=== PATIENT | male | born 1940 | race Caucasian/White ===

== ENCOUNTER 2018-01-09 04:57 | Day surgery (SDC) | payer MEDICARE ==
[2018-01-08 12:21] LABS: BASOPHILS % (AUTO) 0.7 % (0-1); EOSINOPHILS # (AUTO) 0.1 X10'3 (0-0.9); EOSINOPHILS % (AUTO) 1.2 % (0-6); HEMATOCRIT 46.2 % (42.0-52.0); HEMOGLOBIN 15.9 g/dl (14.0-17.9); LYMPHOCYTES % (AUTO) 33.5 % (21-51); MEAN CORPUSCULAR HEMOGLOBIN 30.6 PG (27.0-31.0); MEAN CORPUSCULAR HGB CONC 34.3 % (33.0-36.5); MEAN CORPUSCULAR VOLUME 89.3 FL (78-98); MEAN PLATELET VOLUME 8.1 FL (7.4-10.4); MONOCYTES # (AUTO) 0.6 X10'3 (0-0.9); MONOCYTES % (AUTO) 10.9 % (2-12); NEUTROPHILS # (AUTO) 3.2 X10'3 (1.8-7.7); NEUTROPHILS % (AUTO) 53.7 % (42-75); PLATELET COUNT 238 X10'3 (140-440); RED BLOOD COUNT 5.18 X10'6 (4.70-6.10); RED CELL DISTRIBUTION WIDTH 13.6 % (11.5-14.5); WHITE BLOOD COUNT 5.9 X10'3 (4.5-11.0)
[2018-01-08 12:30] LABS: ANION GAP 8 (8-16); BLOOD UREA NITROGEN 15 MG/DL (7-18); BUN/CREATININE RATIO 12.1 (5.4-32.0); CHLORIDE 102 MMOL/L (99-107); CREATININE 1.24 MG/DL (0.60-1.10); GLUCOSE 152 MG/DL (70-104); POTASSIUM 3.7 MMOL/L (3.5-5.1); SODIUM 136 MMOL/L (135-145); TOTAL CARBON DIOXIDE 25.6 MMOL/L (24-32); eGFR 57 ML/MIN
[2018-01-08 12:31] LABS: INR 0.9 INR; PARTIAL THROMBOPLASTIN TIME 25 SECONDS (22-32); PROTHROMBIN TIME 9.8 SECONDS (9.0-12.0)
[2018-01-08 12:34] LABS: CALCIUM 9.6 MG/DL (8.5-10.1)
[~2018-01-09] VITALS: Ht 180.3 cm; Wt 88.5 kg
[2018-01-09] VITALS (10 sets, daily range): BP systolic 91–152; BP diastolic 52–79
[~2018-01-09 04:57] MED LIST: ASPI-1009 PO; ATOR40TA71 PO; CHOL100024 PO; CYAN50003 PO; FENO160T PO; FISH OIL OMEGA1 EAC1 PO; GLIM4TAB79 PO; LOSA25TA96 PO; MAGN250T11 PO; METF500T PO; METHYLFOLATE PO; METO25TA6 PO; NITR0.4T48 SL; SITA50TA PO; TEST200V10 IM; UBID100C45 PO
[2018-01-09] MEDS ORDERED: FLUC100T8 PO (05:34)
[2018-01-09] MEDS ORDERED: EMPA1TAB3 (05:34)
[2018-01-09] MEDS ORDERED: LOSA1TAB39 PO (05:34)
[2018-01-09] MEDS ORDERED: potassium PO (05:34)
[2018-01-09] MEDS ORDERED: diphenhydrAMINE 25mg capsule PO PRN (05:35)
[2018-01-09] MEDS ORDERED: normal saline 1000ml 1,000 ML IV SCH (05:35)
[2018-01-09] MEDS ORDERED: LIDOcaine/PRILOcaine 5gm cream TP ONE (05:35)
[2018-01-09] MEDS ORDERED: LORazepam 0.5 MG tablet PO PRN (05:35)
[2018-01-09] MEDS ORDERED: lidocaine 1%/epinephrine 1:100,000 injection 50ml vial ONE (06:06)
[2018-01-09] MEDS ORDERED: fentaNYL/PF 50MCG/1 ML 2ML syringe ONE (06:06)
[2018-01-09] MEDS ORDERED: midazolam 2 mg/2 ml injection ONE (06:06)
[2018-01-09] MEDS ORDERED: iohexol 350MG/ML 100ml bottle IV ONE ×2 (06:06→06:52)
[2018-01-09] MEDS ORDERED: heparin 1,000unit/ml 10ml vial 10 ML ONE (06:29)
[2018-01-09] MEDS ORDERED: verapamil 2.5 mg/ml inj IV ONE (06:29)
[2018-01-09] MEDS ORDERED: nitroGLYCERIN-Tridil 50MG/D5W 250 ML IV ONE (06:29)
[2018-01-09] MEDS ORDERED: LIDOcaine 1% 30ml preserv. free vial ONE (06:31)
[2018-01-09] MEDS ORDERED: iohexol 350 MG/ML 50ML vial IV ONE (06:52)
[2018-01-09] MEDS ORDERED: ticagrelor 90mg tablet ONE (07:20)
[2018-01-09] MEDS ORDERED: ondansetron/PF 4mg/2ml inj IV PRN (07:40)
[2018-01-09] MEDS ORDERED: proCHLORperazine 10 MG/2 ml inj IV PRN (07:40)
[2018-01-09] MEDS ORDERED: nitroGLYCERIN 0.4mg SUBLingual tab SL PRN (07:40)
[2018-01-09] MEDS ORDERED: OXAZEpam 15mg capsule PO PRN (07:40)
== END 2018-01-09 11:05 | disposition home or self-care (01) ==
LOC: SSTAY O 04:57
PROVIDERS: ATTEND Internal Medicine Interventional Cardiology
DX: I25.110 Atherosclerotic heart disease of native coronary artery with unstable angina pectoris (principal); I10 Essential (primary) hypertension; E78.5 Hyperlipidemia, unspecified; I65.23 Occlusion and stenosis of bilateral carotid arteries; E11.65 Type 2 diabetes mellitus with hyperglycemia; N40.0 Benign prostatic hyperplasia without lower urinary tract symptoms; M06.9 Rheumatoid arthritis, unspecified; Z90.49 Acquired absence of other specified parts of digestive tract; Z88.1 Allergy status to other antibiotic agents; Z79.84 Long term (current) use of oral hypoglycemic drugs; Z95.5 Presence of coronary angioplasty implant and graft; Z79.82 Long term (current) use of aspirin; Z72.89 Other problems related to lifestyle; Z79.899 Other long term (current) drug therapy; Z98.890 Other specified postprocedural states; Z83.6 Family history of other diseases of the respiratory system; Z82.49 Family history of ischemic heart disease and other diseases of the circulatory system; Z83.49 Family history of other endocrine, nutritional and metabolic diseases
CPT/HCPCS: 36415; 80048; 82948; 85025; 85610; 85730; 93458; 99152; 99153; A6257; A6402; A6449; C1725; C1769; C1874; C9600; J1644; J2250; J3010; J3490; J7030; Q0163; Q9967; A4620

== ENCOUNTER 2018-03-28 11:22 | Outpatient (CLI) | payer MEDICARE ==
[~2018-03-28 11:22] MED LIST changes: -CHOL100024 PO; -CYAN50003 PO; +EMPA1TAB3; -FENO160T PO; +FLUC100T8 PO; +LOSA1TAB39 PO; -LOSA25TA96 PO; -MAGN250T11 PO; -METF500T PO; -METHYLFOLATE PO; -SITA50TA PO; +potassium PO
[2018-03-28 12:05] LABS: BASOPHILS % (AUTO) 0.5 % (0-1); EOSINOPHILS # (AUTO) 0.1 X10'3 (0-0.9); EOSINOPHILS % (AUTO) 1.2 % (0-6); HEMATOCRIT 44.7 % (42.0-52.0); HEMOGLOBIN 15.2 g/dl (14.0-17.9); LYMPHOCYTES # (AUTO) 1.8 X10'3 (1.1-4.8); LYMPHOCYTES % (AUTO) 24.9 % (21-51); MEAN CORPUSCULAR HEMOGLOBIN 30.1 PG (27.0-31.0); MEAN CORPUSCULAR HGB CONC 33.9 % (33.0-36.5); MEAN CORPUSCULAR VOLUME 88.8 FL (78-98); MONOCYTES # (AUTO) 0.4 X10'3 (0-0.9); MONOCYTES % (AUTO) 6.3 % (2-12); NEUTROPHILS # (AUTO) 4.8 X10'3 (1.8-7.7); NEUTROPHILS % (AUTO) 67.1 % (42-75); PLATELET COUNT 229 X10'3 (140-440); RED BLOOD COUNT 5.03 X10'6 (4.70-6.10); RED CELL DISTRIBUTION WIDTH 13.2 % (11.5-14.5); WHITE BLOOD COUNT 7.1 X10'3 (4.5-11.0)
[2018-03-28 12:27] LABS: ALANINE AMINOTRANSFERASE 59 U/L (12-78); ALBUMIN/GLOBULIN RATIO 1.2 (1.1-1.5); ALKALINE PHOSPHATASE 77 IU/L (46-116); ANION GAP 10 (8-16); ASPARTATE AMINO TRANSFERASE 27 U/L (10-37); BILIRUBIN,TOTAL 0.7 MG/DL (0.1-1.0); BLOOD UREA NITROGEN 12 MG/DL (7-18); BUN/CREATININE RATIO 9.4 (5.4-32.0); CHLORIDE 101 MMOL/L (99-107); CREATININE 1.28 MG/DL (0.60-1.10); GLUCOSE 291 MG/DL (70-104); POTASSIUM 3.4 MMOL/L (3.5-5.1); SODIUM 138 MMOL/L (135-145); TOTAL CARBON DIOXIDE 27.5 MMOL/L (24-32); TOTAL PROTEIN 7.3 G/DL (6.4-8.2); eGFR 55 ML/MIN
== END 2018-03-28 23:59 | disposition home or self-care (01) ==
LOC: LAB 11:22
PROVIDERS: ATTEND Internal Medicine Interventional Cardiology
DX: R06.02 Shortness of breath (principal); R60.9 Edema, unspecified; E78.49 Other hyperlipidemia; I10 Essential (primary) hypertension; E11.9 Type 2 diabetes mellitus without complications; Z88.1 Allergy status to other antibiotic agents
CPT/HCPCS: 36415; 80053; 83880; 85025

== ENCOUNTER 2021-07-18 14:16 | Day surgery (SDC) | payer MEDICARE ==
[2021-07-13 12:26] LABS: BASOPHILS % (AUTO) 0.6 % (0-1); EOSINOPHILS # (AUTO) 0.1 X10'3 (0-0.9); EOSINOPHILS % (AUTO) 1.2 % (0-6); HEMATOCRIT 39.3 % (42.0-52.0); HEMOGLOBIN 13.4 g/dl (14.0-17.9); LYMPHOCYTES # (AUTO) 2.8 X10'3 (1.1-4.8); LYMPHOCYTES % (AUTO) 39.3 % (21-51); MEAN CORPUSCULAR HEMOGLOBIN 29.5 PG (27.0-31.0); MEAN CORPUSCULAR HGB CONC 34.1 g/dL (33.0-36.5); MEAN CORPUSCULAR VOLUME 86.5 FL (78-98); MEAN PLATELET VOLUME 7.3 FL (7.4-10.4); MONOCYTES # (AUTO) 0.6 X10'3 (0-0.9); MONOCYTES % (AUTO) 9.2 % (2-12); NEUTROPHILS # (AUTO) 3.5 X10'3 (1.8-7.7); NEUTROPHILS % (AUTO) 49.7 % (42-75); PLATELET COUNT 266 X10'3 (140-440); RED BLOOD COUNT 4.54 X10'6 (4.70-6.10)
[2021-07-13 12:34] LABS: APTT 27 SECONDS (22-32)
[2021-07-13 12:41] LABS: ALBUMIN 4.2 G/DL (3.4-5.0); ANION GAP 13 (8-16); BLOOD UREA NITROGEN 9 MG/DL (7-18); BUN/CREATININE RATIO 8.9 (5.4-32.0); CALCIUM 8.6 MG/DL (8.5-10.1); CHLORIDE 99 MMOL/L (99-107); CREATININE 1.01 MG/DL (0.60-1.10); GLUCOSE 184 MG/DL (70-104); POTASSIUM 4.4 MMOL/L (3.5-5.1); SODIUM 136 MMOL/L (135-145); TOTAL CARBON DIOXIDE 24.5 MMOL/L (24-32); eGFR 71 ML/MIN
[2021-07-18] VITALS (10 sets, daily range): BP systolic 144–185; BP diastolic 59–105
[~2021-07-18] VITALS: Ht 180.3 cm; Wt 86.5 kg
[~2021-07-18 14:16] MED LIST changes: -ASPI-1009 PO; +CLOP75TA15 PO; +DAPA5TAB PO; +DULA0.75; -EMPA1TAB3; +FLO0.4C PO; -FLUC100T8 PO; +GLIM4TAB7 PO; -GLIM4TAB79 PO; +ISOS30TA84 PO; +LOP25T PO; -LOSA1TAB39 PO; +LOSA50TA3 PO; -METO25TA6 PO; +METO5TAB98 PO; +OMEP40CA21 PO; +POTA-197 PO; +RIVA1TAB PO; +RIVA20TA PO; -TEST200V10 IM; +TEST200V33 IM; +[UNRECOGNIZED DRUG - CODE] PO; -potassium PO
[2021-07-18] MEDS ORDERED: LIDOcaine/PRILOcaine 5gm cream TP ONE ×2 (14:25→14:35)
[2021-07-18] MEDS ORDERED: diphenhydrAMINE 25mg capsule PO PRN (14:35)
[2021-07-18] MEDS ORDERED: normal saline 1,000 ML IV SCH (14:35)
[2021-07-18] MEDS ORDERED: LORazepam 0.5 MG tablet PO PRN (14:35)
[2021-07-18] MEDS ORDERED: METF-436 PO (14:55)
[2021-07-18] MEDS ORDERED: RANO500T6 PO (14:55)
[2021-07-18] MEDS ORDERED: ASPI-1144 PO (14:55)
[2021-07-18] MEDS ORDERED: LISI5TAB22 PO (14:55)
[2021-07-18] MEDS ORDERED: RIVA20TA PO (14:55)
[2021-07-18] MEDS ORDERED: CHOL-4 PO (14:55)
[2021-07-18] MEDS ORDERED: LANTUS SQ (14:58)
[2021-07-18] MEDS ORDERED: OMEP20TA23 PO (14:59)
[2021-07-18] MEDS ORDERED: MULT-1085 PO (15:08)
[2021-07-18] MEDS ORDERED: CYAN-34 PO (15:08)
[2021-07-18] MEDS ORDERED: FINA5TAB11 PO (15:08)
[2021-07-18] MEDS ORDERED: midazolam 1 mg/ML 2ml injection ONE (17:09)
[2021-07-18] MEDS ORDERED: verapamil 2.5 mg/ml inj IV ONE (17:09)
[2021-07-18] MEDS ORDERED: fentaNYL/PF 50MCG/1 ML 2ML syringe ONE (17:09)
[2021-07-18] MEDS ORDERED: iohexol 350MG/ML 100ml bottle IV ONE (17:10)
[2021-07-18] MEDS ORDERED: heparin 1,000unit/ml 10ml vial 10 ML ONE (17:10)
[2021-07-18] MEDS ORDERED: nitroGLYCERIN-Tridil 50MG/D5W 250 ML IV ONE (17:10)
[2021-07-18] MEDS ORDERED: LIDOcaine 1% (10mg/ml)w/preservative injection 20ml MDV ONE (17:10)
[2021-07-18] MEDS ORDERED: hydrALAZINE 20mg/ml inj. IV ONE (18:14)
[2021-07-18] MEDS ORDERED: nitroGLYCERIN 0.4mg SUBLingual tab SL ONE (20:03)
== END 2021-07-18 21:00 | disposition home or self-care (01) ==
LOC: SSTAY O 14:16
PROVIDERS: ATTEND Internal Medicine Interventional Cardiology
DX: R07.89 Other chest pain (principal); I25.118 Atherosclerotic heart disease of native coronary artery with other forms of angina pectoris; E11.9 Type 2 diabetes mellitus without complications; G47.33 Obstructive sleep apnea (adult) (pediatric); E78.5 Hyperlipidemia, unspecified; I10 Essential (primary) hypertension; I65.29 Occlusion and stenosis of unspecified carotid artery; Z79.899 Other long term (current) drug therapy; Z95.5 Presence of coronary angioplasty implant and graft; Z86.711 Personal history of pulmonary embolism; Z88.1 Allergy status to other antibiotic agents
CPT/HCPCS: 36415; 80048; 82948; 85025; 85610; 85730; 93005; 93458; 99152; 99153; C1769; C1894; J0360; J1644; J2250; J3010; J3490; J7030; Q0163; Q9967; A4620; A5120

== ENCOUNTER 2022-09-25 11:03 | Day surgery (SDC) | payer MEDICARE ==
[2022-09-25] VITALS (9 sets, daily range): BP systolic 144–187; BP diastolic 61–91
[~2022-09-25] VITALS: Ht 180.3 cm; Wt 85.7 kg
[~2022-09-25 11:03] MED LIST changes: +ASPI-1144 PO; +CHOL-4 PO; -CLOP75TA15 PO; +CYAN-34 PO; -DAPA5TAB PO; -DULA0.75; +FINA5TAB11 PO; -FLO0.4C PO; -GLIM4TAB7 PO; +LANTUS SQ; +LISI5TAB22 PO; -LOP25T PO; -LOSA50TA3 PO; +METF-436 PO; -METO5TAB98 PO; +MULT-1085 PO; +OMEP20TA23 PO; -OMEP40CA21 PO; -POTA-197 PO; +RANO500T6 PO; -RIVA1TAB PO; -RIVA20TA PO; -TEST200V33 IM; -UBID100C45 PO; +[UNRECOGNIZED DRUG - CODE] IV; -[UNRECOGNIZED DRUG - CODE] PO
[2022-09-25] MEDS ORDERED: LORazepam 0.5 MG tablet PO PRN (11:40)
[2022-09-25] MEDS ORDERED: normal saline 1,000 ML IV SCH (11:40)
[2022-09-25] MEDS ORDERED: diphenhydrAMINE 25mg capsule PO PRN (11:40)
[2022-09-25] MEDS ORDERED: DOXY100T2 PO (11:43)
[2022-09-25] MEDS ORDERED: FENO145T25 PO (11:43)
[2022-09-25] MEDS ORDERED: METO-411 PO (11:43)
[2022-09-25] MEDS ORDERED: FLO0.4C PO (11:43)
[2022-09-25] MEDS ORDERED: METF-437 PO (11:43)
[2022-09-25] MEDS ORDERED: UBID50TA3 PO (11:43)
[2022-09-25] MEDS ORDERED: ATOR-2 PO (11:43)
[2022-09-25] MEDS ORDERED: EZET10TA48 PO (11:43)
[2022-09-25] MEDS ORDERED: POTA-366 PO (11:43)
[2022-09-25] MEDS ORDERED: midazolam 1 mg/ML 2ml injection ONE (11:53)
[2022-09-25] MEDS ORDERED: verapamil 2.5 mg/ml inj IV ONE (11:53)
[2022-09-25] MEDS ORDERED: LIDOcaine 1% (10mg/ml) 2ml vial ONE (11:53)
[2022-09-25] MEDS ORDERED: fentaNYL/PF 50MCG/1 ML 2ML syringe ONE (11:54)
[2022-09-25] MEDS ORDERED: heparin 1,000unit/ml 10ml vial 10 ML ONE ×2 (11:54→13:13)
[2022-09-25] MEDS ORDERED: nitroGLYCERIN-Tridil 50MG/D5W 250 ML IV ONE (11:54)
[2022-09-25] MEDS ORDERED: iohexol 350MG/ML 100ml bottle IV ONE ×2 (11:54→13:14)
[2022-09-25] MEDS ORDERED: LIDOcaine 1% 30ml preserv. free vial ONE (12:48)
[2022-09-25] MEDS ORDERED: iohexol 350 MG/ML 50ML vial IV ONE ×2 (12:57→13:10)
[2022-09-25] MEDS ORDERED: aspirin 81mg tab.chew ONE (13:13)
[2022-09-25] MEDS ORDERED: ticagrelor 90mg tablet ONE (13:13)
[2022-09-25] MEDS ORDERED: normal saline 1000ml 1,000 ML IV SCH (14:40)
[2022-09-25] MEDS ORDERED: ondansetron/PF 4mg/2ml inj IV PRN (14:40)
[2022-09-25] MEDS ORDERED: HYDROcodone/acetaminophen 5mg/325mg tablet PO PRN (14:45)
[2022-09-25] MEDS ORDERED: proCHLORperazine 10 MG/2 ml inj IV PRN (14:45)
[2022-09-25] MEDS ORDERED: HYDROcodone/acetaminophen 10/325mg tab PO PRN (14:45)
[2022-09-25] MEDS ORDERED: OXAZEpam 15mg capsule PO PRN (14:45)
== END 2022-09-25 17:55 | disposition home or self-care (01) ==
LOC: SSTAY O 11:03
PROVIDERS: ATTEND Student in an Organized Health Care Education/Training Program
DX: T82.855A Stenosis of coronary artery stent, initial encounter (principal); I25.10 Atherosclerotic heart disease of native coronary artery without angina pectoris; I10 Essential (primary) hypertension; E11.9 Type 2 diabetes mellitus without complications; G47.33 Obstructive sleep apnea (adult) (pediatric); E78.5 Hyperlipidemia, unspecified; I65.29 Occlusion and stenosis of unspecified carotid artery; Z86.711 Personal history of pulmonary embolism; Z79.82 Long term (current) use of aspirin; Z79.899 Other long term (current) drug therapy; Z79.4 Long term (current) use of insulin; Z95.5 Presence of coronary angioplasty implant and graft; Z77.090 Contact with and (suspected) exposure to asbestos
CPT/HCPCS: 82948; 92920; 93005; 93459; 93567; 99152; 99153; C1725; C1751; J1644; J2250; J3010; J3490; J7030; Q9967; 93454; 93458; A4615; C1760; C1894

== ENCOUNTER 2023-01-01 11:58 | Day surgery (SDC) | payer MEDICARE ==
[2023-01-01] VITALS (8 sets, daily range): BP systolic 129–175; BP diastolic 70–91; PULSE 60–65; RESP 15–20; TEMP 97.6; O2SAT 95–98
[~2023-01-01] VITALS: Ht 180.3 cm; Wt 82.0 kg
[~2023-01-01 11:58] MED LIST changes: +ATOR-2 PO; -ATOR40TA71 PO; +DOXY100T2 PO; +EZET10TA48 PO; +FENO145T25 PO; -FISH OIL OMEGA1 EAC1 PO; +FLO0.4C PO; -ISOS30TA84 PO; -LISI5TAB22 PO; -METF-436 PO; +METF-437 PO; +METO-411 PO; -OMEP20TA23 PO; +POTA-366 PO; -RANO500T6 PO; +UBID50TA3 PO; -[UNRECOGNIZED DRUG - CODE] IV
[2023-01-01] MEDS ORDERED: normal saline 1,000 ML IV SCH (12:20)
[2023-01-01] MEDS ORDERED: LORazepam 0.5 MG tablet PO PRN (12:20)
[2023-01-01] MEDS ORDERED: FURO40TA4 PO (12:36)
[2023-01-01] MEDS ORDERED: CLOP75TA34 PO (12:36)
[2023-01-01] MEDS ORDERED: ISOS60TA71 PO (12:36)
[2023-01-01] MEDS ORDERED: RANO500T6 PO (12:36)
[2023-01-01] MEDS ORDERED: DAPA5TAB PO (12:36)
[2023-01-01] MEDS ORDERED: fentaNYL/PF 50MCG/1 ML 2ML syringe ONE (13:32)
[2023-01-01] MEDS ORDERED: iohexol 350MG/ML 100ml bottle IV ONE (13:32)
[2023-01-01] MEDS ORDERED: LIDOcaine 1% 30ml preserv. free vial ONE (13:32)
[2023-01-01] MEDS ORDERED: midazolam 1 mg/ML 2ml injection ONE (13:32)
[2023-01-01] MEDS ORDERED: iohexol 350 MG/ML 50ML vial IV ONE (13:33)
[2023-01-01] MEDS ORDERED: HYDROcodone/acetaminophen 10/325mg tab PO PRN (16:10)
[2023-01-01] MEDS ORDERED: HYDROcodone/acetaminophen 5mg/325mg tablet PO PRN (16:10)
[2023-01-02 06:42] LABS: ISTAT HGB MIX 11.6 g/dl (14.0-17.9); ISTAT Hct MIX 34 %PCV (42-52); ISTAT O2 SATURATION MIX VENOUS 62 % (60-80); ISTAT SOURCE VEN
== END 2023-01-01 17:35 | disposition home or self-care (01) ==
LOC: SSTAY O 11:58
PROVIDERS: ATTEND Student in an Organized Health Care Education/Training Program
DX: I11.0 Hypertensive heart disease with heart failure (principal); I50.9 Heart failure, unspecified; G47.33 Obstructive sleep apnea (adult) (pediatric); I65.29 Occlusion and stenosis of unspecified carotid artery; I25.10 Atherosclerotic heart disease of native coronary artery without angina pectoris; E11.9 Type 2 diabetes mellitus without complications; M48.00 Spinal stenosis, site unspecified; E78.5 Hyperlipidemia, unspecified; Z86.711 Personal history of pulmonary embolism; Z79.899 Other long term (current) drug therapy; Z95.5 Presence of coronary angioplasty implant and graft; Z79.4 Long term (current) use of insulin; Z79.01 Long term (current) use of anticoagulants; Z77.090 Contact with and (suspected) exposure to asbestos; Z88.1 Allergy status to other antibiotic agents
CPT/HCPCS: 33289; 82803; 82948; 85014; 93005; 99152; 99153; A6258; C2624; J1644; J2250; J3010; J3490; J7030; Q9967; A6402; C1751; C1769; C1894

== ENCOUNTER 2023-05-23 10:57 | Outpatient (CLI) | payer MEDICARE ==
[2023-05-23] VITALS (22 sets, daily range): BP systolic 128–187; BP diastolic 64–106; PULSE 88–114
[~2023-05-23 10:57] MED LIST changes: +CLOP75TA34 PO; +DAPA5TAB PO; +FURO40TA4 PO; +ISOS60TA71 PO; +RANO500T6 PO
== END 2023-05-23 23:59 | disposition home or self-care (01) ==
LOC: CARD DIAG 10:57
PROVIDERS: ATTEND Internal Medicine Interventional Cardiology
DX: R55 Syncope and collapse (principal)
CPT/HCPCS: 93660